=== PATIENT | female | born 1995 | race African-American/Black ===

== ENCOUNTER 2017-10-09 00:44 | Emergency (ER) | payer SELFPAY ==
[2017-10-09 00:47] VITALS: BP 130/62; PULSE 75; TEMP 98; BMI 26.5
--- NOTE | 2017-10-09 00:53 | PDOC ---
History of Present Illness - General History Source: Patient Exam Limitations: No Limitations - History of Present Illness Initial Comments: 10/09/17 00:58 The patient is a 21-year-old female, with a significant past medical history of asthma and anxiety, who presents to the ED with asthma exacerbation that began at 6 AM yesterday morning. The patient reports that she is a smoker. Patient is non-compliant with her medications. The patient denies any fever, chills, cough, nausea, vomiting, diarrhea, or abdominal pain. Allergies: fish derived, peanut PCP: N/A <Ama Green - Last Filed: 10/09/17 00:58> - General History Source: Patient, Significant Other <Rogers Coker - Last Filed: 10/09/17 02:52> - General Chief Complaint: Shortness of Breath Stated Complaint: DIFF BREATHING Time Seen by Provider: 10/09/17 00:51 Past History <Ama Green - Last Filed: 10/09/17 00:58> - Past Medical History Asthma: Yes - Suicide/Smoking/Psychosocial Hx Smoking History: Never smoked Have you smoked in the past 12 months: No Information on smoking cessation initiated: No Hx Alcohol Use: No Drug/Substance Use Hx: No Substance Use Type: None Hx Substance Use Treatment: No <Rogers Coker - Last Filed: 10/09/17 02:52> - Past Medical History Allergies/Adverse Reactions: Allergies Allergy/AdvReac Type Severity Reaction Status Date / Time fish derived Allergy Rash Verified 10/09/17 00:45 peanut Allergy Rash Verified 10/09/17 00:45 Home Medications: Ambulatory Orders Albuterol 0.083% Nebulizer Thalia [Ventolin 0.083% Nebulizer Soln -] 1 neb NEB Q4H #1 box 09/23/15 Albuterol Sulfate Inhaler - [Ventolin HFA Inhaler -] 2 inh PO Q6H PRN #1 inh 05/30 Nebulizer Accessories [A.i.r.s. Nebulizer] 1 each Q4H PRN #1 kit 09/23/15 Nebulizer and Compressor [Comp-Air Elite Comp Nebulizer] 1 each Q4H PRN #1 each 09/23/15 Salmeterol/Fluticasone [Advair 100Mcg/50Mcg -] 1 puff IH BID #1 inhaler Amox-Tr/K Cl [Augmentin - 875Mg Tablet] 1 tab PO BID #10 tablet 09/28/15 Fluocinonide 0.05% Cream [Lidex 0.05% Cream -] 1 applic TP BID #1 tube 09/28/15 Prednisone 40 mg PO ASDIR #14 tablet 09/28/15 Albuterol 0.083% Nebulizer Thalia [Ventolin 0.083% Nebulizer Soln -] 1 neb NEB Q6H #30 vial 10/09/17 Albuterol Sulfate Inhaler - [Ventolin HFA Inhaler -] 2 inh IH Q6H #1 inh Methylprednisolone [Medrol Dose Emeterio] 4 mg PO ASDIR #21 tablet 10/09/17 Review of Systems - Review of Systems Able to Perform ROS?: Yes Comments:: 10/09/17 00:59 CONSTITUTIONAL: Absent: fever, no chills, no fatigue EYES: Absent: visual changes ENT: Absent: ear pain, no sore throat CARDIOVASCULAR: Absent: chest pain, no palpitations RESPIRATORY: Present: shortness of breath Absent: cough GI: Absent: abdominal pain, no nausea, no vomiting, no constipation, no diarrhea GENITOURINARY: Absent: dysuria, no frequency, no hematuria MUSKULOSKELETAL: Absent: back pain, no arthralgia, no myalgia SKIN: Absent: rash NEURO: Absent: headache <Ama Green - Last Filed: 10/09/17 00:58> *Physical Exam - Vital Signs Last Vital Signs Temp Pulse Resp BP Pulse Ox 98.0 F 75 20 130/62 100 10/09/17 00:45 10/09/17 00:45 10/09/17 00:45 10/09/17 00:45 10/09/17 00:45 - Physical Exam Comments: 10/09/17 00:59 GENERAL: Well-appearing, well-nourished. No apparent distress. HEENT: Normocephalic, atraumatic. PERRL, EOM intact. CARDIOVASCULAR: (+)Tachycardic. Normal S1, S2. PULMONARY: (+)Patient is tachypneic, retracting, mild dyspnea on exertion. ABDOMEN: Soft, non-distended, non-tender. EXTREMITIES: Normal ROM in all four extremities. No gross deformities. SKIN: Warm, dry. No rash NEUROLOGICAL: No focal neurological deficits. <Ama Green - Last Filed: 10/09/17 00:58> - Vital Signs Last Vital Signs Temp Pulse Resp BP Pulse Ox 98.0 F 75 20 130/62 100 10/09/17 00:45 10/09/17 00:45 10/09/17 00:45 10/09/17 00:45 10/09/17 00:45 <Rogers Coker - Last Filed: 10/09/17 02:52> ED Treatment Course - LABORATORY CBC & Chemistry Diagram: 10/09/17 02:22 10/09/17 02:22 <Rogers Coker - Last Filed: 10/09/17 02:52> Medical Decision Making - Medical Decision Making 10/09/17 02:52 Dr. Coker: The scribe's documentation has been prepared under my direction and personally reviewed by me in its entirery. I confirm that the note above accurately reflects all work, treatment, procedures, and medical decision making performed by me. <Rogers Coker - Last Filed: 10/09/17 02:52> *DC/Admit/Observation/Transfer - Attestations Scribe Attestion: 10/09/17 01:02 Documentation prepared by Ama Green, acting as medical research scientist for Rogers Coker MD. <Ama Green - Last Filed: 10/09/17 00:58> - Discharge Dispostion Admit: No <Rogers Coker - Last Filed: 10/09/17 02:52> Diagnosis at time of Disposition: Asthma exacerbation - Discharge Dispostion Disposition: HOME Condition at time of disposition: Stable - Patient Instructions Printed Discharge Instructions: DI for Asthma -- Adult
[2017-10-09] MEDS ORDERED: ALBUTEROL SO4 2.5/IPRATROPIUM 0.5 INH SOL 3 ML VIAL.NEB. NEB STA ×2 (00:54)
[2017-10-09] MEDS ORDERED: methylPREDNISolone NA SUCC 125 MG/2 ML VIAL IVPB ONE (00:54)
[2017-10-09] MEDS ORDERED: MAGNESIUM SULF 50% (8.12 MEQ/2 ML-1 GM VIAL) IVPB ONE (00:54)
[2017-10-09] MEDS ORDERED: MAGNESIUM SULF 50% (8.12 MEQ/2 ML-1 GM VIAL) ONE (01:42)
[2017-10-09] MEDS ORDERED: methylPREDNISolone NA SUCC 125 MG/2 ML VIAL ONE (01:43)
[2017-10-09] MEDS ORDERED: ALBUTEROL SO4 2.5/IPRATROPIUM 0.5 INH SOL 3 ML VIAL.NEB. NEB ONE (01:43)
== END 2017-10-09 03:28 | disposition home or self-care (01) ==
LOC: JER 00:44
PROC: 3E0F7GC Introduction of Other Therapeutic Substance into Respiratory Tract, Via Natural or Artificial Opening (ICD-10-PCS; principal; 2017-10-09)
PROC: 3E0F7GC Introduction of Other Therapeutic Substance into Respiratory Tract, Via Natural or Artificial Opening (ICD-10-PCS; 2017-10-09)
DX: J45.901 Unspecified asthma with (acute) exacerbation (principal); F17.210 Nicotine dependence, cigarettes, uncomplicated
CPT/HCPCS: 36415; 87804; 99281-25

== ENCOUNTER 2018-04-02 00:09 | Emergency (ER) | payer OTHER ==
[2018-04-02 00:35] VITALS: BMI 25.7
[2018-04-02] MEDS ORDERED: ALBUTEROL SO4 2.5/IPRATROPIUM 0.5 INH SOL 3 ML VIAL.NEB. NEB ONE ×2 (02:06→02:20)
[2018-04-02] MEDS ORDERED: methylPREDNISolone NA SUCC 125 MG/2 ML VIAL IVPUSH ONE (02:08)
--- NOTE | 2018-04-02 02:17 | PDOC ---
History of Present Illness - General Chief Complaint: Allergic Reaction Stated Complaint: ALLERGIC REACTION Time Seen by Provider: 04/02/18 00:56 History Source: Patient - History of Present Illness Timing/Duration: reports: changing over time Severity: reports: mild Possible Cause: Yes: frequent episodes Associated Symptoms: reports: shortness of breath Past History - Past Medical History Allergies/Adverse Reactions: Allergies Allergy/AdvReac Type Severity Reaction Status Date / Time fish derived Allergy Rash Verified 04/02/18 00:27 peanut Allergy Rash Verified 04/02/18 00:27 Home Medications: Ambulatory Orders Albuterol 0.083% Nebulizer Thalia [Ventolin 0.083% Nebulizer Soln -] 1 neb NEB Q4H #1 box 09/23/15 Albuterol Sulfate Inhaler - [Ventolin HFA Inhaler -] 2 inh PO Q6H PRN #1 inh 05/30 Nebulizer Accessories [A.i.r.s. Nebulizer] 1 each MC Q4H PRN #1 kit 09/23/15 Nebulizer and Compressor [Comp-Air Elite Comp Nebulizer] 1 each MC Q4H PRN #1 each 09/23/15 Salmeterol/Fluticasone [Advair 100Mcg/50Mcg -] 1 puff IH BID #1 inhaler Amox-Tr/K Cl [Augmentin - 875Mg Tablet] 1 tab PO BID #10 tablet 09/28/15 Fluocinonide 0.05% Cream [Lidex 0.05% Cream -] 1 applic TP BID #1 tube 09/28/15 Prednisone 40 mg PO ASDIR #14 tablet 09/28/15 Albuterol 0.083% Nebulizer Thalia [Ventolin 0.083% Nebulizer Soln -] 1 neb NEB Q6H #30 vial 10/09/17 Albuterol Sulfate Inhaler - [Ventolin HFA Inhaler -] 2 inh IH Q6H #1 inh Methylprednisolone [Medrol Dose Emeterio] 4 mg PO ASDIR #21 tablet 10/09/17 Albuterol 0.083% Nebulizer Thalia [Ventolin 0.083% Nebulizer Soln -] 1 neb NEB QID PRN #20 vial 04/02/18 Albuterol Sulfate Inhaler - [Ventolin Hfa Inhaler -] 1 - 2 inh PO Q4H PRN #1 inhaler 04/02/18 Methylprednisolone [Medrol Dose Emeterio] 4 mg PO ASDIR #21 tablet 04/02/18 Triamcinolone 0.1% Cream [Aristocort 0.1% Cream -] 15 gm TP BID PRN #1 tube Anemia: No Asthma: Yes COPD: No - Immunization History Td Vaccination: Yes Immunization Up to Date: Yes - Suicide/Smoking/Psychosocial Hx Smoking History: Never smoked Have you smoked in the past 12 months: No Information on smoking cessation initiated: No Hx Alcohol Use: No Drug/Substance Use Hx: No Substance Use Type: None Hx Substance Use Treatment: No Review of Systems - Review of Systems Able to Perform ROS?: Yes Is the patient limited French proficient: Yes Constitutional: No: Symptoms Reported, See HPI, Chills, Diaphoresis, Fever, Loss of Appetite, Malaise, Night Sweats, Weakness, Weight Stable, Unintentional Wgt. Loss, Unexplained wgt Loss, Other HEENTM: No: Symptoms Reported, See HPI, Eye Pain, Blurred Vision, Tearing, Recent change in vision, Double Vision, Cataracts, Ear Pain, Ocular Prothesis, Ear Discharge, Nose Pain, Nose Congestion, Tinnitus, Nose Bleeding, Hearing Loss , Throat Pain, Throat Swelling, Mouth Pain, Dental Problems, Difficulty Swallowing, Mouth Swelling, Other Respiratory: Yes: Wheezing Cardiac (ROS): No: Symptoms Reported, See HPI, Chest Pain, Edema, Irregular Heart Rate, Lightheadedness, Palpitations, Syncope, Chest Tightness, Other ABD/GI: No: Symptoms Reported, See HPI, Abdominal Distended, Abd. Pain w/ defecation, Blood Streaked Bowels, Constipated, Diarrhea, Difficulty Swallowing , Nausea, Poor Appetite, Poor Fluid Intake, Rectal Bleeding, Vomiting, Indigestion, Abdominal cramping, Tarry Stools, Other : No: Symptoms Reported, See HPI, Burning, Dysuria, Discharge, Frequency, Flank Pain, Hematuria, Incontinence, Pain, Urgency, Testicular Mass, Testicular Swelling, Lesions, Testicular Pain, Other Musculoskeletal: No: Symptoms Reported, See HPI, Back Pain, Gout, Joint Pain, Joint Swelling, Muscle Pain, Muscle Weakness, Neck Pain, Joint Stiffness, Other Integumentary: Yes: Dryness, Pruritus (pt has history of ezcema and allergies, asthma), Rash Neurological: No: Symptoms reported, See HPI, Headache, Numbness, Paresthesia, Pre-Existing Deficit, Seizure, Tingling, Tremors, Weakness, Unsteady Gait, Ataxia, Dizziness, Other Endocrine: No: Symptoms Reported, See HPI, Excessive Sweating, Flushing, Intolerance to Cold, Intolerance to Heat, Increased Hunger, Increased Thirst, Increased Urine, Unexplained Weight Gain, Unexplained Weight Loss, Change in Weight, Other *Physical Exam - Vital Signs Last Vital Signs Temp Pulse Resp BP Pulse Ox 97.6 F 61 20 105/77 100 04/02/18 00:34 04/02/18 00:34 04/02/18 00:34 04/02/18 00:34 04/02/18 00:34 - Physical Exam General Appearance: Yes: Nourished HEENT: positive: EOMI, Normal Voice Neck: positive: Supple Respiratory/Chest: positive: Wheezing Cardiovascular: positive: Regular Rhythm, Regular Rate Gastrointestinal/Abdominal: positive: Soft Musculoskeletal: positive: Normal Inspection Extremity: positive: Normal Range of Motion Integumentary: positive: Rash (pt has eczema ) Neurologic: positive: Fully Oriented, Alert *DC/Admit/Observation/Transfer Diagnosis at time of Disposition: Chronic eczema Asthma exacerbation Qualifiers: Asthma severity: mild Asthma persistence: unspecified Qualified Code(s): J45.901 - Unspecified asthma with (acute) exacerbation - Discharge Dispostion Condition at time of disposition: Good - Prescriptions Prescriptions: Albuterol 0.083% Nebulizer Thalia [Ventolin 0.083% Nebulizer Soln -] 1 neb NEB QID PRN #20 vial PRN Reason: Asthma Albuterol Sulfate Inhaler - [Ventolin Hfa Inhaler -] 1 - 2 inh PO Q4H PRN #1 inhaler PRN Reason: Asthma Methylprednisolone [Medrol Dose Emeterio] 4 mg PO ASDIR #21 tablet Triamcinolone 0.1% Cream [Aristocort 0.1% Cream -] 15 gm TP BID PRN #1 tube PRN Reason: For Itching - Referrals Referrals: Danielle Rm MD [Staff Physician] - - Patient Instructions Printed Discharge Instructions: DI for Itching, DI for Asthma -- Adult Additional Instructions: please use your inhalers as prescribed please pick up attendant your medications at your pharmacy Follow up with the director of digital platforms for your eczema - Post Discharge Activity
[2018-04-02] MEDS ORDERED: methylPREDNISolone NA SUCC 125 MG/2 ML VIAL ONE (02:21)
[2018-04-02 05:38] VITALS: BP 109/68; PULSE 69; TEMP 97.9
--- NOTE | 2018-04-02 06:05 | PDOC ---
*Physical Exam - Vital Signs Last Vital Signs Temp Pulse Resp BP Pulse Ox 97.9 F 69 16 109/68 99 04/02/18 05:37 04/02/18 05:37 04/02/18 05:37 04/02/18 05:37 04/02/18 05:37 ED Treatment Course - Medications Given in the ED: ED Medications Discontinued Medications Generic Name Dose Route Start Last Admin Trade Name Freq PRN Reason Stop Dose Admin Albuterol/Ipratropium 1 amp 04/02/18 02:06 04/02/18 02:20 Duoneb - NEB 04/02/18 02:07 1 amp ONCE ONE Administration Diphenhydramine HCl 25 mg 04/02/18 02:06 04/02/18 02:20 Benadryl Injection - IVPB 04/02/18 02:07 25 mg ONCE STA Administration Methylprednisolone Sodium Succinate 125 mg 04/02/18 02:08 04/02/18 02:20 Solu-Medrol - IVPUSH 04/02/18 02:09 125 mg ONCE ONE Administration Medical Decision Making - Medical Decision Making 04/02/18 06:03 Care received at 0600 Briefly, pt presented with itching and asthma exacerbation, pending reassessment post meds On exam, pt sleeping well appearing, comfortable. Vitals wnl Lungs clear with no wheezes, crackes No WOB Medications including steroids prescribed Pt stable for DC home I discussed the physical exam findings, ancillary test results and final diagnoses with the patient. I answered all of the patient's questions. The patient was satisfied with the care received and felt comfortable with the discharge plan and treatment plan. The patient will call their primary care physician within 24 hours to arrange follow-up and will return to the Emergency Department with any new, persistent or worsening symptoms. *DC/Admit/Observation/Transfer Diagnosis at time of Disposition: Chronic eczema Asthma exacerbation Qualifiers: Asthma severity: mild Asthma persistence: unspecified Qualified Code(s): J45.901 - Unspecified asthma with (acute) exacerbation - Discharge Dispostion Condition at time of disposition: Good - Prescriptions Prescriptions: Albuterol 0.083% Nebulizer Thalia [Ventolin 0.083% Nebulizer Soln -] 1 neb NEB QID PRN #20 vial PRN Reason: Asthma Albuterol Sulfate Inhaler - [Ventolin Hfa Inhaler -] 1 - 2 inh PO Q4H PRN #1 inhaler PRN Reason: Asthma Methylprednisolone [Medrol Dose Emeterio] 4 mg PO ASDIR #21 tablet Triamcinolone 0.1% Cream [Aristocort 0.1% Cream -] 15 gm TP BID PRN #1 tube PRN Reason: For Itching - Referrals Referrals: Danielle Rm MD [Staff Physician] - - Patient Instructions Printed Discharge Instructions: DI for Asthma -- Adult, DI for Itching Additional Instructions: please use your inhalers as prescribed please picker tender your medications at your pharmacy Follow up with the regional tanker truck driver for your eczema - Post Discharge Activity
== END 2018-04-02 06:10 | disposition home or self-care (01) ==
LOC: JER 00:09
PROC: 3E0F7GC Introduction of Other Therapeutic Substance into Respiratory Tract, Via Natural or Artificial Opening (ICD-10-PCS; principal; 2018-04-02)
PROC: 3E033GC Introduction of Other Therapeutic Substance into Peripheral Vein, Percutaneous Approach (ICD-10-PCS; 2018-04-02)
DX: L30.9 Dermatitis, unspecified (principal); J45.901 Unspecified asthma with (acute) exacerbation
CPT/HCPCS: 94640; 96374; 96375; 99282-25; J7620

== ENCOUNTER 2019-01-29 10:22 | Emergency (ER) | payer OTHER ==
[2019-01-29 10:33] VITALS: BP 136/76; PULSE 73; TEMP 97.9; BMI 25.7
[2019-01-29] MEDS ORDERED: KETOROLAC TROMETHAMINE 30 MG/1 ML VIAL IVPUSH ONE (11:05)
--- NOTE | 2019-01-29 11:07 | PDOC ---
History of Present Illness - General Chief Complaint: Cold Symptoms Stated Complaint: WEAKNESS Time Seen by Provider: 01/29/19 10:47 History Source: Patient Exam Limitations: No Limitations - History of Present Illness Initial Comments: 01/29/19 11:03 23-year-old female presents to ED with complaints of generalized body aches worsening over the past day. Patient states has history of myalgia and muscle spasm since 2011 and is followed by a neurologist in [place] who recommended in November to begin physical therapy again but patient states has not and now continues with discomfort. Patient states took Motrin Tylenol with no relief. Patient states spasms of the upper legs is normal and presentation which she describes a sharp tight sensation causing her difficulty to walk. Patient denies abdominal pain, chest pain, shortness of breath, headache, nausea , urinary or bowel complaints. Patient also denies any incontinence, decreased sensation to the lower extremities or swelling to the lower extremities. Patient states she believes the pain since 2011 is related to her Depo-Provera injections which she received in bilateral hips for approximate 4 years prior to onset of symptoms. Patient states had an MRI done earlier this year which she states was negative Timing/Duration: intermittent Severity: moderate Associated Symptoms: reports: other. denies: weakness Beta Bharat Contraindications(Core Measure): Yes: Not Prescribed Past History - Travel Traveled outside of the country in the last 30 days: No Close contact w/someone who was outside of country & ill: No - Past Medical History Allergies/Adverse Reactions: Allergies Allergy/AdvReac Type Severity Reaction Status Date / Time fish derived Allergy Rash Verified 04/02/18 00:27 peanut Allergy Rash Verified 04/02/18 00:27 Home Medications: Ambulatory Orders NK [No Known Home Medication] 01/29/19 Anemia: No Asthma: Yes COPD: No - Immunization History Td Vaccination: Yes Immunization Up to Date: Yes - Suicide/Smoking/Psychosocial Hx Smoking History: Never smoked Have you smoked in the past 12 months: No Information on smoking cessation initiated: No Hx Alcohol Use: No Drug/Substance Use Hx: No Substance Use Type: None Hx Substance Use Treatment: No Patient Lives Alone: No Lives with/in: parents Review of Systems - Review of Systems Able to Perform ROS?: No Is the patient limited Nigerian proficient: No Constitutional: No: Symptoms Reported HEENTM: Yes: Symptoms Reported Respiratory: No: Symptoms reported Cardiac (ROS): No: Symptoms Reported ABD/GI: No: Symptoms Reported : No: Symptoms Reported Musculoskeletal: Yes: Symptoms Reported, Joint Pain (francisco hips), Muscle Pain. No : Joint Swelling, Muscle Weakness Integumentary: No: Symptoms Reported Neurological: No: Headache, Numbness, Tingling, Weakness Hematologic/Lymphatic: No: Symptoms Reported *Physical Exam - Vital Signs Last Vital Signs Temp Pulse Resp BP Pulse Ox 97.9 F 73 20 136/76 99 01/29/19 10:01/29/19 10:29 01/29/19 10:01/29/19 10:01/29/19 11:02 - Physical Exam General Appearance: Yes: Nourished, Appropriately Dressed. No: Apparent Distress HEENT: negative: Pale Conjunctivae Neck: positive: Supple Respiratory/Chest: positive: Lungs Clear, Normal Breath Sounds. negative: Respiratory Distress Cardiovascular: positive: Regular Rhythm, Regular Rate. negative: Murmur Gastrointestinal/Abdominal: positive: Soft. negative: Tenderness Musculoskeletal: negative: Vertebral Tenderness Extremity: positive: Normal Capillary Refill, Normal Inspection, Normal Range of Motion, Other (noted tenderness to francisco quadraceps. no edema, redness, or increased warmth). negative: Pedal Edema, Calf Tenderness Integumentary: positive: Normal Color, Warm, Moist ED Treatment Course - LABORATORY CBC & Chemistry Diagram: 01/29/19 11:30 01/29/19 11:30 Medical Decision Making - Medical Decision Making 01/29/19 11:31 CC: francisco upper leg pain x 1 day, pt w/ hx of the same. no meds taken. Sees a neurologist who recommended PT which pt has not gone to due to lack of time. Pt requesting something for pain. Exam: francisco upper-mid quadracep tenderness Plan: labs, toradol iv 01/29/19 13:32 Laboratory Tests 01/29/19 01/29/19 01/29/19 11:30 11:30 11:30 WBC 10.1 H Hgb 12.8 Hct 38.2 Neutrophils % 61.1 D Eosinophils % 9.4 H D Sodium 137 Potassium 4.1 Chloride 105 Carbon Dioxide 27 Anion Gap 6 L BUN 10.6 Creatinine 0.5 L Random Glucose 71 L Calcium 9.1 Magnesium 2.1 Total Bilirubin 0.5 AST 12 L Albumin 3.8 Patient told to finish eating her [place] food that she brought with her and states is feeling much better and wants to go home. Patient will be discharged home with Constanza. *DC/Admit/Observation/Transfer Diagnosis at time of Disposition: Muscle pain - Discharge Dispostion Disposition: HOME Condition at time of disposition: Improved - Referrals Referrals: Leydi Montgomery MD [Primary Care Provider] - - Patient Instructions Printed Discharge Instructions: DI for Leg Pain Additional Instructions: At this time I do recommend following back up with your neurologist and begin physical therapy as recommended. May take medication as needed for discomfort. Follow-up also with your primary care physician and return to ED if symptoms worsen - Post Discharge Activity
--- NOTE | 2019-01-29 11:23 | PDOC ---
*Physical Exam - Vital Signs Last Vital Signs Temp Pulse Resp BP Pulse Ox 97.9 F 73 20 136/76 99 01/29/19 10:29 01/29/19 10:29 01/29/19 10:29 01/29/19 10:29 01/29/19 11:02 ED Treatment Course - LABORATORY CBC & Chemistry Diagram: 01/29/19 11:30 01/29/19 11:30 Medical Decision Making - Medical Decision Making 01/29/19 11:23 Pt seen by Midlevel Provider under my direct supervision Ancillary studies reviewed Laboratory Tests 01/29/19 01/29/19 11:30 11:30 WBC 10.1 H Hgb 12.8 Hct 38.2 Plt Count 396 BUN 10.6 Creatinine 0.5 L I agree with plan as outlined by Midlevel Provider 01/29/19 12:42 01/29/19 13:36 EKG -NSR rate of 54 bpm, axis nml, intervals nml, no st elevation or depression , t wave *DC/Admit/Observation/Transfer Diagnosis at time of Disposition: Muscle pain - Discharge Dispostion Disposition: HOME Condition at time of disposition: Improved - Prescriptions Prescriptions: Naproxen [Naprosyn -] 375 mg PO BID PRN #20 tablet PRN Reason: Pain - Referrals Referrals: Leydi Montgomery MD [Primary Care Provider] - - Patient Instructions Printed Discharge Instructions: DI for Leg Pain Additional Instructions: At this time I do recommend following back up with your neurologist and begin physical therapy as recommended. May take medication as needed for discomfort. Follow-up also with your primary care physician and return to ED if symptoms worsen - Post Discharge Activity
[2019-01-29] MEDS ORDERED: KETOROLAC TROMETHAMINE 30 MG/1 ML VIAL ONE (11:26)
[2019-01-29 11:47] LABS: EOS % 9.4 % (0-4.5); HEMATOCRIT 38.2 % (32.4-45.2); HEMOGLOBIN 12.8 GM/dL (10.7-15.3); LYMPH % 23.4 % (8-40); MCH 28.1 pg (25.7-33.7); MCHC 33.5 g/dl (32.0-36.0); MEAN PLT VOLUME 7.9 fl (7.5-11.1); MONO % 5.1 % (3.8-10.2); NEUT % 61.1 % (42.8-82.8); PLATELET COUNT 396 K/MM3 (134-434); RBC 4.56 M/mm3 (3.60-5.2); RDW 14.8 % (11.6-15.6); WHITE BLOOD COUNT 10.1 K/mm3 (4.0-10.0)
[2019-01-29 12:24] LABS: ALBUMIN 3.8 g/dl (3.4-5.0); BILIRUBIN,TOTAL 0.5 mg/dL (0.2-1); BLOOD UREA NITROGEN 10.6 mg/dL (7-18); CALCIUM 9.1 mg/dL (8.5-10.1); CREATININE 0.5 mg/dL (0.55-1.3); POTASSIUM 4.1 mmol/L (3.5-5.1); TOT PROT 7.2 g/dl (6.4-8.2)
--- NOTE | 2019-01-29 15:17 | EKG ---
Test Reason : Blood Pressure : / mmHG Vent. Rate : 054 BPM Atrial Rate : 054 BPM P-R Int : 198 ms QRS Dur : 078 ms QT Int : 432 ms P-R-T Axes : 038 069 060 degrees QTc Int : 409 ms SINUS BRADYCARDIA WITH SINUS ARRHYTHMIA OTHERWISE NORMAL ECG WHEN COMPARED WITH ECG OF 23-SEP-2015 08:28, VENT. RATE HAS DECREASED BY 43 BPM NONSPECIFIC T WAVE ABNORMALITY NO LONGER EVIDENT IN INFERIOR LEADS NONSPECIFIC T WAVE ABNORMALITY NO LONGER EVIDENT IN LATERAL LEADS QT HAS SHORTENED Confirmed by YEFRI JIMENEZ, SANDRA ([id number]) on 01/29/2019 3:16:25 PM Referred By: Confirmed By:SANDRA ASIF MD
== END 2019-01-29 13:45 | disposition home or self-care (01) ==
LOC: JER 10:22
PROC: 3E0333Z Introduction of Anti-inflammatory into Peripheral Vein, Percutaneous Approach (ICD-10-PCS; principal; 2019-01-29)
DX: M62.838 Other muscle spasm (principal)
CPT/HCPCS: 36415; 80053; 83735; 85025; 93005; 93010; 99283-25

== ENCOUNTER 2019-03-24 16:10 | Emergency (ER) | payer OTHER ==
[2019-03-24] MEDS ORDERED: methylPREDNISolone NA SUCC 125 MG/2 ML VIAL IVPB ONE (16:15)
[2019-03-24 16:17] VITALS: BP 120/80; PULSE 110; TEMP 98.1; BMI 29.8
--- NOTE | 2019-03-24 16:17 | PDOC ---
Rapid Medical Evaluation Medical Evaluation: Allergies Allergy/AdvReac Type Severity Reaction Status Date / Time fish derived Allergy Rash Verified 04/02/18 00:27 peanut Allergy Rash Verified 04/02/18 00:27 03/24/19 16:15 The patient presents with a chief complaint of: wheezing, sob, coughing x 1 week , using nebs and inhaler without improvement I have performed a brief in-person evaluation of this patient. Pertinent physical exam findings: 94-97 on ra, francisco wheeze and decreased bs to rt base, tachypneic I have ordered the following: iv, solumedrol, nebs The patient will proceed to the ED for further evaluation. <Ev Vallejo - Last Filed: 03/24/19 16:15> Medical Evaluation: Allergies Allergy/AdvReac Type Severity Reaction Status Date / Time fish derived Allergy Rash Verified 03/24/19 16:17 peanut Allergy Rash Verified 03/24/19 16:17 Vital Signs Temp Pulse Resp BP Pulse Ox 98.1 F 110 H 30 H 120/80 97 03/24/19 16:13 03/24/19 16:13 03/24/19 16:13 03/24/19 16:13 03/24/19 16:13 <Dale Alonso - Last Filed: 03/24/19 19:50> Time Seen by Provider: 03/24/19 16:13 Discharge Disposition <Ev Vallejo - Last Filed: 03/24/19 16:15> <Dale Alonso - Last Filed: 03/24/19 19:50> - Diagnosis Asthma exacerbation Qualifiers: Asthma severity: moderate Asthma persistence: unspecified Qualified Code(s): J45.901 - Unspecified asthma with (acute) exacerbation - Discharge Dispostion Disposition: HOME - Prescriptions Prescriptions: Albuterol Sulfate Inhaler - [Ventolin Hfa Inhaler -] 1 - 2 inh PO Q4H PRN #1 inhaler PRN Reason: Wheezing Budesonide/Formeterol Fumarate [SYMBICORT 80/4.5mcg -] 1 inh PO DAILY #1 cannister Prednisone [Deltasone] 40 mg PO DAILY 4 Days #8 tablet - Referrals Referrals: Leydi Montgomery MD [Primary Care Provider] - - Patient Instructions Printed Discharge Instructions: Asthma -- Adult Additional Instructions: Take Symbicort daily, prednisone as prescribed, Ventolin rescue inhaler only as needed for wheezing that does not respond to the steroids and the Symbicort as prescribed Follow-up with your doctor in 2-3 days. Return to emergency department for any severe worsening symptoms or for any concerns.
[2019-03-24] MEDS ORDERED: ALBUTEROL SO4 2.5/IPRATROPIUM 0.5 INH SOL 3 ML VIAL.NEB. NEB ONE ×5 (16:19→18:33)
[2019-03-24] MEDS: ALBUTEROL SO4 2.5/IPRATROPIUM 0.5 INH SOL 3 ML VIAL.NEB. NEB SCH ×4 (16:51→18:30)
[2019-03-24] MEDS ORDERED: ACETAMINOPHEN INJECTION 100 ML IVPB ONE (16:57)
[2019-03-24] MEDS ORDERED: methylPREDNISolone NA SUCC 125 MG/2 ML VIAL ONE (17:24)
--- NOTE | 2019-03-24 18:40 | PDOC ---
History of Present Illness - General Chief Complaint: Asthma Stated Complaint: ASTHMA Time Seen by Provider: 03/24/19 16:13 - History of Present Illness Initial Comments: 03/24/19 18:36 23 years old with past medical history significant for moderate asthma no previous intubations is supposed to be on a daily inhaled steroid but has not been taking it presents with an asthma exacerbation triggered by change in weather Wheezing has been taking her albuterol pump daily for the last several days with no improvement in symptoms no fever no sputum no leg swelling no travel no PE DVT risk factors Symptoms are moderate persistent constant no alleviating factors. Past History - Past Medical History Allergies/Adverse Reactions: Allergies Allergy/AdvReac Type Severity Reaction Status Date / Time fish derived Allergy Rash Verified 03/24/19 16:17 peanut Allergy Rash Verified 03/24/19 16:17 Home Medications: Ambulatory Orders Naproxen [Naprosyn -] 375 mg PO BID PRN #20 tablet 01/29/19 Albuterol Sulfate Inhaler - [Ventolin Hfa Inhaler -] 1 - 2 inh PO Q4H PRN #1 inhaler 03/24/19 Budesonide/Formeterol Fumarate [SYMBICORT 80/4.5mcg -] 1 inh PO DAILY #1 cannister 03/24/19 Prednisone [Deltasone] 40 mg PO DAILY 4 Days #8 tablet 03/24/19 Anemia: No Asthma: Yes COPD: No - Immunization History Td Vaccination: Yes Immunization Up to Date: Yes - Suicide/Smoking/Psychosocial Hx Smoking History: Never smoked Have you smoked in the past 12 months: No Hx Alcohol Use: No Drug/Substance Use Hx: No Substance Use Type: None Hx Substance Use Treatment: No Review of Systems - Review of Systems Comments:: 03/24/19 18:36 ROS: A complete review of 10 out of 10 review of systems is taken and is negative apart from what is previously mentioned below and in the HPI. *Physical Exam - Vital Signs Last Vital Signs Temp Pulse Resp BP Pulse Ox 98.1 F 110 H 30 H 120/80 97 03/24/19 16:13 03/24/19 16:13 03/24/19 16:13 03/24/19 16:13 03/24/19 16:13 - Physical Exam Comments: 03/24/19 18:37 Vitals: Triage Vital signs reviewed General Appearance: no acute distress, well nourished well developed, Head: Atraumatic, Cardiac: Regular rate and rhythym, no murmurs, no rubs, no gallops, Lungs: Clear to auscultation bilateral, good air movement bilaterally, Abdomen: Soft, non distended, normal bowel sounds, non tender to palpation Extremities: Full range of motion to all extremities, no cyanosis, clubbing, or edema Skin: Warm and dry, no rashes or lesions, no rash, no petechiae Psych: normal mood, normal affect ED Treatment Course - Medications Given in the ED: ED Medications Discontinued Medications Generic Name Dose Route Start Last Admin Trade Name Freq PRN Reason Stop Dose Admin Albuterol/Ipratropium 1 amp 03/24/19 16:15 03/24/19 18:30 Duoneb - NEB 03/24/19 17:01 1 amp Q15M SVEN Administration Albuterol/Ipratropium 1 amp 03/24/19 17:29 03/24/19 17:50 Duoneb - NEB 03/24/19 17:30 1 amp ONCE ONE Administration Methylprednisolone Sodium Succinate 125 mg 03/24/19 16:15 03/24/19 17:40 Solu-Medrol - IVPB 03/24/19 16:16 125 mg ONCE ONE Administration Medical Decision Making - Medical Decision Making 03/24/19 18:38 Patient presented to the emergency department with a moderate asthma exacerbation. Upon my arrival to the room patient had a ready received Solu-Medrol and 3 DuoNeb's and her wheezing had completely improved She is well-appearing in no apparent distress no fever no indication for chest x -ray. Discharge home on a Symbicort inhaler albuterol rescue inhaler and four-day course of prednisone she'll follow-up with her doctor in 1-2 days Findings, the need for follow-up and strict return instructions discussed with patient. *DC/Admit/Observation/Transfer Diagnosis at time of Disposition: Asthma exacerbation Qualifiers: Asthma severity: moderate Asthma persistence: unspecified Qualified Code(s): J45.901 - Unspecified asthma with (acute) exacerbation - Discharge Dispostion Disposition: HOME Decision to Admit order: No - Prescriptions Prescriptions: Albuterol Sulfate Inhaler - [Ventolin Hfa Inhaler -] 1 - 2 inh PO Q4H PRN #1 inhaler PRN Reason: Wheezing Budesonide/Formeterol Fumarate [SYMBICORT 80/4.5mcg -] 1 inh PO DAILY #1 cannister Prednisone [Deltasone] 40 mg PO DAILY 4 Days #8 tablet - Referrals Referrals: Leydi Montgomery MD [Primary Care Provider] - - Patient Instructions Printed Discharge Instructions: Asthma -- Adult Additional Instructions: Take Symbicort daily, prednisone as prescribed, Ventolin rescue inhaler only as needed for wheezing that does not respond to the steroids and the Symbicort as prescribed Follow-up with your doctor in 2-3 days. Return to emergency department for any severe worsening symptoms or for any concerns. - Post Discharge Activity
== END 2019-03-24 20:37 | disposition home or self-care (01) ==
LOC: JER 16:10
PROC: 3E0333Z Introduction of Anti-inflammatory into Peripheral Vein, Percutaneous Approach (ICD-10-PCS; principal; 2019-03-24)
PROC: 3E0F7GC Introduction of Other Therapeutic Substance into Respiratory Tract, Via Natural or Artificial Opening (ICD-10-PCS; 2019-03-24)
PROC: 3E0F7GC Introduction of Other Therapeutic Substance into Respiratory Tract, Via Natural or Artificial Opening (ICD-10-PCS; 2019-03-24)
DX: J45.901 Unspecified asthma with (acute) exacerbation (principal)
CPT/HCPCS: 94640; 96374; 99281-25

== ENCOUNTER 2019-09-02 11:30 | Emergency (ER) | payer OTHER ==
[2019-09-02 11:44] VITALS: BP 113/76; PULSE 120; TEMP 99.9; BMI 30.2
[2019-09-02] MEDS ORDERED: ACETAMINOPHEN 500 MG TABLET (FP) PO ONE (12:13)
[2019-09-02] MEDS ORDERED: DEXAMETHASONE LIQUID 0.5 MG/5 ML PO ONE (12:13)
[2019-09-02] MEDS ORDERED: ALBUTEROL SO4 2.5/IPRATROPIUM 0.5 INH SOL 3 ML VIAL.NEB. NEB ONE (12:16)
[2019-09-02] MEDS ORDERED: DEXAMETHASONE SOD PHOSPHATE 10 MG/1 ML VIAL ONE (12:16)
[2019-09-02] MEDS ORDERED: ACETAMINOPHEN 500 MG TABLET (FP) ONE (12:16)
[2019-09-02] MEDS: ALBUTEROL SO4 2.5/IPRATROPIUM 0.5 INH SOL 3 ML VIAL.NEB. NEB SCH ×4 (12:22→12:53)
--- NOTE | 2019-09-02 13:42 | PDOC ---
History of Present Illness - General Chief Complaint: Asthma Stated Complaint: DIFFICULTY BREATHING Time Seen by Provider: 09/02/19 11:49 - History of Present Illness Initial Comments: 09/02/19 13:40 23-year-old female with a past medical history of asthma presents for evaluation of asthma exacerbation x1 day. Patient was brought in by ambulance. Past History - Past Medical History Allergies/Adverse Reactions: Allergies Allergy/AdvReac Type Severity Reaction Status Date / Time fish derived Allergy Rash Verified 09/02/19 11:41 peanut Allergy Rash Verified 09/02/19 11:41 Home Medications: Ambulatory Orders Naproxen [Naprosyn -] 375 mg PO BID PRN #20 tablet 01/29/19 Albuterol Sulfate Inhaler - [Ventolin Hfa Inhaler -] 1 - 2 inh PO Q4H PRN #1 inhaler 03/24/19 Budesonide/Formeterol Fumarate [SYMBICORT 80/4.5mcg -] 1 inh PO DAILY #1 cannister 03/24/19 predniSONE [Deltasone] 40 mg PO DAILY 4 Days #8 tablet 03/24/19 Albuterol 0.083% Nebulizer Thalia [Ventolin 0.083% Nebulizer Soln -] 1 neb NEB Q6H 30 Days #90 vial 03/25/19 Nebulizer Accessories [Mouthpiece] 1 each MC PRN #5 each 03/25/19 Nebulizer [Compact Compressor Nebulizer] 1 each MC PRN #1 each 03/25/19 Albuterol 0.083% Nebulizer Thalia [Ventolin 0.083% Nebulizer Soln -] 1 neb NEB Q4H PRN #20 vial 09/02/19 Oseltamivir Phosphate [Tamiflu] 75 mg PO BID #10 capsule 09/02/19 Anemia: No Asthma: Yes COPD: No - Immunization History Td Vaccination: Yes Immunization Up to Date: Yes - Psycho Social/Smoking Cessation Hx Smoking History: Never smoked Have you smoked in the past 12 months: No Hx Alcohol Use: No Drug/Substance Use Hx: No Substance Use Type: None Hx Substance Use Treatment: No Review of Systems - Review of Systems Constitutional: Yes: Chills, Fever Respiratory: Yes: Cough, Shortness of Breath, Wheezing *Physical Exam - Vital Signs Last Vital Signs Temp Pulse Resp BP Pulse Ox 99.9 F H 120 H 16 113/76 98 09/02/19 11:41 09/02/19 11:41 09/02/19 11:41 09/02/19 11:41 09/02/19 11:41 - Physical Exam 09/02/19 13:40 GENERAL: The patient is awake, alert, and fully oriented, in no acute distress. HEAD: Normal with no signs of trauma. EYES: sclera anicteric, conjunctiva clear. ENT: Ears normal tympanic membranes normal oropharynx clear uvula midline NECK: Normal range of motion LUNGS: Decreased at the bases, no appreciable wheezing. No rhonchi. HEART: S1 and S2 without murmur, rub or gallop. ABDOMEN: Soft, nontender, normoactive bowel sounds. No guarding, no rebound. No masses. EXTREMITIES: Normal range of motion, no edema. No clubbing or cyanosis. No cords, erythema, or tenderness. NEUROLOGICAL: Cranial nerves II through XII grossly intact. PSYCH: Normal mood, normal affect. SKIN: Warm, Dry, normal turgor, no rashes or lesions noted. ED Treatment Course - RADIOLOGY Radiology Studies Ordered: Category Date Time Status CHEST PA & LAT [RAD] Stat Radiology 09/02/19 12:14 Taken - Medications Given in the ED: ED Medications Discontinued Medications Generic Name Dose Route Start Last Admin Trade Name Margaritoq PRN Reason Stop Dose Admin Acetaminophen 1,000 mg 09/02/19 12:13 09/02/19 12:22 Tylenol - PO 09/02/19 12:14 1,000 mg ONCE ONE Administration Albuterol/Ipratropium 1 amp 09/02/19 12:15 09/02/19 12:53 Duoneb - NEB 09/02/19 13:01 1 amp Q15M SVEN Administration Dexamethasone 10 mg 09/02/19 12:13 09/02/19 12:21 Decadron Liquid - PO 09/02/19 12:14 10 mg ONCE ONE Administration Medical Decision Making - Medical Decision Making 09/02/19 13:41 Patient with full breath sounds after treatment and Decadron will encourage incentive spirometry at home and treat for influenza in light of asthma and recent exacerbation with systemic symptoms. Discharge - Discharge Information Problems reviewed: Yes Clinical Impression/Diagnosis: Asthma exacerbation, Influenza Condition: Stable Disposition: HOME - Admission No - Additional Discharge Information Prescriptions: Albuterol 0.083% Nebulizer Thalia [Ventolin 0.083% Nebulizer Soln -] 1 neb NEB Q4H PRN #20 vial PRN Reason: Wheezing - Follow up/Referral Referrals: Shaggy Tafoya MD, MD [Staff Physician] - - Patient Discharge Instructions Additional Instructions: Tylenol Motrin as directed for fever and body aches. Return to the emergency room for worsening symptoms and without fail follow-up with your primary care physician in 1 to 2 days for further evaluation and treatment options. Please take the Tamiflu as directed. Please use the nebulizer as directed and continue the incentive spirometry as directed 10 times an hour while awake. Return to the emergency room for worsening symptoms. Without fail follow-up with pulmonology in 1 to 2 days as well. - Post Discharge Activity
== END 2019-09-02 13:45 | disposition home or self-care (01) ==
LOC: JERFT 11:30
PROC: 3E0F7GC Introduction of Other Therapeutic Substance into Respiratory Tract, Via Natural or Artificial Opening (ICD-10-PCS; principal; 2019-09-02)
DX: J45.901 Unspecified asthma with (acute) exacerbation (principal); J11.1 Influenza due to unidentified influenza virus with other respiratory manifestations; Z91.013 Allergy to seafood; Z91.010 Allergy to peanuts
CPT/HCPCS: 71046-TC-FY; 99284-25